=== PATIENT | female | born 1940 | race Caucasian/White ===

== ENCOUNTER 2020-05-02 11:40 | Emergency (ER) | payer MEDICARE, OTHER ==
--- NOTE | 2020-05-02 12:30 | CT ---
INDICATION: Left sided weakness. No headache or dizziness. CT HEAD WITHOUT CONTRAST: Spiral 3.75 mm axial sections were obtained through the brain without contrast with axial, sagittal and coronal reconstructions, 05/02/2020 and compared with 06/27/2010. Total exam DLP was 1219.22 mGy-cm. There is a again noted a small retention cyst at the base of the right maxillary antrum with the paranasal and mastoid air cells otherwise well aerated. The orbits appear to be intact. Calcifications are noted in the vertebral and internal carotid arteries. Focal low density abnormality is now seen in the thalami bilaterally, larger on the left than on the right, suggesting lacunar infarcts. Basal ganglia areas of decreased density are noted, also compatible with lunar infarcts, more prominently on the left than on the right-relatively tiny changes are seen on the right. White matter changes have progressed significantly compared with the previous examination, compatible with at least a moderate degree of microvascular disease type changes in the white matter with the bulk of the abnormality in the white matter in the parietal lobes and fairly randomly placed in those lobes. No definite acute intracranial abnormality was identified-no definite bleeding site or definite acute thrombotic CVA is seen. However, the possibility that some of these areas of decreased density in the white matter are on an acute basis or evolving is difficult to exclude especially in the left parietal area, although multiple sites of change in appearance are present. IMPRESSION: 1. Cerebral vascular disease with arterial calcifications and progressive moderate microvascular disease type changes in the white matter, some of which could represent acute or evolving incidence of ischemia. No bleeding site or hematoma was seen. 2. Mild central atrophy which is progressive compared with the previous study. 3. Minimal progressive cortical atrophy compared with the previous study. Report was called to Dr. Mena at 1212 hours 05/02/2020. [facility]
--- NOTE | 2020-05-02 12:45 | EDM.PDOC ---
ED HPI GENERAL MEDICAL PROBLEM - General Stated Complaint: WEAKNESS Time Seen by Provider: 05/02/20 11:45 Source of Information: Reports: Patient History Limitations: Reports: No Limitations - History of Present Illness INITIAL COMMENTS - FREE TEXT/NARRATIVE: Patient is an 79 YO female who presented to the ED because of left sided weakness which started 3 days ago. She also had slurred speech according to the daughter and blurry vision. She fell Thursday and Thursday because her left leg is weak and gave out. There is no headache,dizziness, nausea,vomiting. Most of her symptoms has already resolved since Thursday except the blurry vision. 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 ED ROS GENERAL - Review of Systems Review Of Systems: See Below Constitutional: Reports: No Symptoms HEENT: Reports: No Symptoms Respiratory: Reports: No Symptoms Cardiovascular: Reports: No Symptoms Endocrine: Reports: No Symptoms GI/Abdominal: Reports: No Symptoms : Reports: No Symptoms Musculoskeletal: Reports: No Symptoms Skin: Reports: No Symptoms Neurological: Reports: Weakness Psychiatric: Reports: No Symptoms Hematologic/Lymphatic: Reports: No Symptoms ED EXAM, NEURO - Physical Exam Exam: See Below Exam Limited By: No Limitations General Appearance: Alert, No Apparent Distress Eye Exam: Bilateral Eye: PERRL Ears: Normal External Exam, Normal Canal, Hearing Grossly Normal Nose: Normal Inspection, Normal Mucosa, No Blood Throat/Mouth: Normal Inspection, Normal Lips, Normal Teeth, Normal Gums Head Exam: Atraumatic, Other Neck: Normal Inspection, Supple, Non-Tender, Full Range of Motion Respiratory/Chest: No Respiratory Distress, Lungs Clear, Normal Breath Sounds, No Accessory Muscle Use, Chest Non-Tender Cardiovascular: Normal Peripheral Pulses, Regular Rate, Rhythm, No Edema, No Gallop, No JVD, No Murmur GI/Abdominal: Normal Bowel Sounds, Soft, Non-Tender, No Organomegaly Neurological: Alert, Normal Dorsiflexion, CN II-XII Intact, Normal Plantar Flexion, Normal Gait, Normal Reflexes, No Motor/Sensory Deficits, Oriented x 3 Back Exam: Normal Inspection, Full Range of Motion Extremities: Normal Inspection, Normal Range of Motion Psychiatric: Normal Affect, Normal Mood Skin Exam: Warm, Intact, Normal Color, No Rash Course - Vital Signs Text/Narrative:: Labs/EKG/Head CT was reviewed and discussed with patient ASA 324 mg PO x1 - Orders/Labs/Meds Orders: Active Orders 24 hr Category Date Time Status EKG Documentation Completion [RC] ASDIRECTED Care 05/02/20 11:53 Active Chest 1V Frontal [CR] Stat Exams 05/02/20 11:52 Taken COMPREHENSIVE METABOLIC PN,CMP [CHEM] Stat Lab 05/02/20 12:15 Received INR,PT,PROTHROMBIN TIME [COAG] Stat Lab 05/02/20 12:15 Received PTT,PARTIAL THROMBOPLSTIN TIME [COAG] Stat Lab 05/02/20 12:15 Received TROPONIN I [CHEM] Stat Lab 05/02/20 12:15 Received Sodium Chloride 0.9% [Saline Flush] Med 05/02/20 11:52 Active 10 ml FLUSH ASDIRECTED PRN Saline Lock Insert [OM.PC] Routine Oth 05/02/20 11:52 Ordered EKG 12 Lead [EK] Routine Ther 05/02/20 11:52 Ordered Medication Orders Sodium Chloride (Sodium Chloride 0.9% 10 Ml Syringe) 10 ml FLUSH ASDIRECTED PRN PRN Reason: Keep Vein Open Labs: Laboratory Tests 05/02/20 Range/Units 12:15 WBC 7.1 (3.0-10.3) x10-3/uL RBC 3.82 (3.60-5.20) x10(6)uL Hgb 11.4 (11.4-15.5) g/dL Hct 34.7 (34.2-48.2) % MCV 90.8 (76.7-100.5) fL MCH 29.8 (23.9-33.9) pg MCHC 32.8 (31.9-34.8) g/dL RDW 13.5 (12.3-16.5) % Plt Count 174 (151-488) x10(3)uL MPV 10.0 (7.1-12.4) fL Neut % (Auto) 78.3 H (30.8-76.2) % Lymph % (Auto) 17.6 L (18.4-52.1) % [place] % (Auto) 3.2 L (4.4-15.7) % Eos % (Auto) 0.3 L (0.6-8.1) % Baso % (Auto) 0.6 (0.2-1.5) % Neut # (Auto) 5.5 (1.5-6.3) x10-3/uL Lymph # (Auto) 1.3 (1.0-4.4) x10-3/uL [place] # (Auto) 0.2 L (0.3-1.0) x10-3/uL Eos # (Auto) 0.0 (0.0-0.8) x10-3/uL Baso # (Auto) 0.0 (0.0-0.1) x10-3/uL Meds: Medications Generic Name Dose Route Start Last Admin Trade Name Freq PRN Reason Stop Dose Admin Sodium Chloride 10 ml 05/02/20 11:52 Sodium Chloride 0.9% 10 Ml Syringe FLUSH ASDIRECTED PRN Keep Vein Open Departure - Departure Time of Disposition: 13:00 Disposition: DC/Tfer to Acute Hospital 02 Condition: Good Clinical Impression: CVA (cerebral vascular accident), Hypertension - Discharge Information - My Orders Last 24 Hours: My Active Orders 05/02/20 11:52 Chest 1V Frontal [CR] Stat Sodium Chloride 0.9% [Saline Flush] 10 ml FLUSH ASDIRECTED PRN Saline Lock Insert [OM.PC] Routine EKG 12 Lead [EK] Routine 05/02/20 11:53 EKG Documentation Completion [RC] ASDIRECTED 05/02/20 12:15 COMPREHENSIVE METABOLIC PN,CMP [CHEM] Stat INR,PT,PROTHROMBIN TIME [COAG] Stat PTT,PARTIAL THROMBOPLSTIN TIME [COAG] Stat TROPONIN I [CHEM] Stat - Assessment/Plan Last 24 Hours: My Active Orders 05/02/20 11:52 Chest 1V Frontal [CR] Stat Sodium Chloride 0.9% [Saline Flush] 10 ml FLUSH ASDIRECTED PRN Saline Lock Insert [OM.PC] Routine EKG 12 Lead [EK] Routine 05/02/20 11:53 EKG Documentation Completion [RC] ASDIRECTED 05/02/20 12:15 COMPREHENSIVE METABOLIC PN,CMP [CHEM] Stat INR,PT,PROTHROMBIN TIME [COAG] Stat PTT,PARTIAL THROMBOPLSTIN TIME [COAG] Stat TROPONIN I [CHEM] Stat
[2020-05-02] MEDS: Aspirin 81 MG Tab.Chew PO STA (13:02)
[2020-05-02] MEDS: hydrALAZINE 20 MG/ML SDV IVPUSH STA (13:07)
[2020-05-02] MEDS: Sodium Chloride 0.9% 10 ML Syringe FLUSH PRN (13:07)
--- NOTE | 2020-05-02 15:57 | CR ---
INDICATION: CVA. CHEST ONE VIEW: An AP portable upright view of the chest was obtained 05/02/20 and compared with 05/28/11. The heart did not appear increased in size compared with the previous study and may be near the upper limits of normal in size. The aorta is calcified in the arch area. A definite active infiltrate or effusion was not identified. Evidence of exogenous obesity is noted. IMPRESSION: No acute process. MTDD
== END 2020-05-02 13:38 ==
LOC: FB.ED 11:40
DX: I63.9 Cerebral infarction, unspecified (principal); I10 Essential (primary) hypertension
CPT/HCPCS: 70450; 71045; 80053; 84484; 85025; 85610; 85730; 93005; 96374; 99285; A9270; J0360

== ENCOUNTER 2021-11-06 19:28 | Emergency (ER) | payer MEDICARE, OTHER ==
[2021-11-06] MEDS: Sodium Chloride 0.9% 1,000 ML IV SCH (20:04)
[2021-11-06] MEDS: Ondansetron 4 MG/2 ML SDV IVPUSH ONE (20:04)
[2021-11-06 20:27] LABS: ESTIMATED GFR 13 mL/min (>60)
[2021-11-06] MEDS: hydrALAZINE 20 MG/ML SDV IVPUSH ONE (21:15)
[2021-11-06] MEDS: Acetaminophen 325 MG Tab PO ONE (21:50)
[2021-11-06] MEDS: Acetaminophen 325 MG Tab ONE (21:50)
== END 2021-11-06 22:05 | disposition home or self-care (01) ==
LOC: FB.ED 19:28
DX: I12.9 Hypertensive chronic kidney disease with stage 1 through stage 4 chronic kidney disease, or unspecified chronic kidney disease (principal); N18.30 Chronic kidney disease, stage 3 unspecified; E11.40 Type 2 diabetes mellitus with diabetic neuropathy, unspecified
CPT/HCPCS: 36415; 80048; 82550; 85025; 96361; 96374; 96375; 99283; 99284-25; A9270-GY; J0360; J2405; J7030

== ENCOUNTER 2021-12-28 16:03 | Emergency (ER) | payer MEDICARE, OTHER ==
[2021-12-28 17:09] LABS: ESTIMATED GFR 10 mL/min (>60)
[2021-12-28] MEDS ORDERED: Potassium Chloride 20 MEQ Tab.ER PO ONE (17:25)
[2021-12-28] MEDS: NS + KCl 20mEq/L 1,000 ML IV SCH ×2 (17:31→19:00)
[2021-12-28 17:39] LABS: CORONAVIRUS COVID-19 NAA NEGATIVE (NEGATIVE)
[2021-12-28] MEDS ORDERED: cloNIDine 0.1 MG Tab PO ONE (20:56)
== END 2021-12-28 21:25 | disposition home or self-care (01) ==
LOC: FB.ED 16:03
DX: E86.0 Dehydration (principal); E87.6 Hypokalemia; E83.52 Hypercalcemia; E78.00 Pure hypercholesterolemia, unspecified; I12.9 Hypertensive chronic kidney disease with stage 1 through stage 4 chronic kidney disease, or unspecified chronic kidney disease; E11.42 Type 2 diabetes mellitus with diabetic polyneuropathy; E11.22 Type 2 diabetes mellitus with diabetic chronic kidney disease; N18.30 Chronic kidney disease, stage 3 unspecified; E03.9 Hypothyroidism, unspecified; M10.9 Gout, unspecified; Z20.822 Contact with and (suspected) exposure to COVID-19
CPT/HCPCS: 0241U; 36415; 80048; 81001; 83735; 84443; 84484; 85027; 96365; 99284-25; A9270-GY; J3480

== ENCOUNTER 2022-01-02 09:16 | Inpatient (IN) | payer MEDICARE, OTHER ==
[2022-01-02] MEDS ORDERED: Sodium Chloride 0.9% 1,000 ML IV ONE (09:45)
[2022-01-02] MEDS ORDERED: Ondansetron 4 MG/2 ML SDV IVPUSH ONE (09:45)
[2022-01-02 10:24] LABS: ESTIMATED GFR 12 mL/min (>60)
[2022-01-02] MEDS ORDERED: Acetaminophen 325 MG Tab PO PRN (14:45)
[2022-01-02] MEDS: hydrALAZINE 50 MG Tab PO SCH ×2 (16:10→21:22)
[2022-01-02] MEDS: Sodium Chloride 0.9% 1,000 ML IV SCH (16:14)
[2022-01-02] MEDS: Heparin Sodium 5,000 Units/ML Vial SUBCUT SCH (18:05)
[2022-01-02] MEDS: Sodium Bicarbonate 650 MG Tab PO SCH (21:22)
[2022-01-02] MEDS: cloNIDine 0.1 MG Tab PO SCH (21:22)
[2022-01-02] MEDS: NIFEdipine 60 MG Tab.ER PO SCH (21:41)
[2022-01-03] MEDS: Sodium Chloride 0.9% 1,000 ML IV SCH (03:52)
[2022-01-03] MEDS: Heparin Sodium 5,000 Units/ML Vial SUBCUT SCH (05:55)
[2022-01-03] MEDS ORDERED: Levothyroxine 125 MCG Tab PO SCH (06:00)
[2022-01-03 07:30] LABS: ESTIMATED GFR 12 mL/min (>60)
[2022-01-03] MEDS ORDERED: Aspirin 325 MG Tab.EC PO SCH (09:00)
[2022-01-03] MEDS ORDERED: Ascorbic Acid 500 MG Tab PO SCH (09:00)
[2022-01-03] MEDS ORDERED: Ferrous Sulfate 325 MG Tab PO SCH (09:00)
[2022-01-03] MEDS: Ondansetron 4 MG/2 ML SDV IVPUSH PRN (09:05)
[2022-01-03] MEDS ORDERED: Furosemide 40 MG/4 ML VIAL IVPUSH SCH (09:15)
[2022-01-03] MEDS: NIFEdipine 60 MG Tab.ER PO SCH ×2 (10:22→21:32)
[2022-01-03] MEDS: cloNIDine 0.1 MG Tab PO SCH ×2 (10:22→21:32)
[2022-01-03] MEDS: Metoprolol Succinate 50 MG Tab.ER PO SCH (10:24)
[2022-01-03] MEDS: hydrALAZINE 50 MG Tab PO SCH ×3 (10:32→21:32)
[2022-01-03] MEDS: Sodium Bicarbonate 650 MG Tab PO SCH (10:33)
[2022-01-03] MEDS: Docusate Sodium 100 MG Cap PO SCH (12:35)
[2022-01-03] MEDS ORDERED: LORazepam 0.5 MG Tab PO PRN (17:02)
[2022-01-03] MEDS ORDERED: Hyoscyamine 0.125 MG Tab.SL SL PRN (17:05)
[2022-01-03] MEDS ORDERED: Morphine 10 MG/0.5 ML Oral Syringe PO PRN (17:06)
[2022-01-04 07:02] LABS: ESTIMATED GFR 11 mL/min (>60)
[2022-01-04] MEDS: hydrALAZINE 50 MG Tab PO SCH ×3 (10:04→20:37)
[2022-01-04] MEDS: cloNIDine 0.1 MG Tab PO SCH ×2 (10:04→20:38)
[2022-01-04] MEDS: NIFEdipine 60 MG Tab.ER PO SCH ×2 (10:04→20:38)
[2022-01-04] MEDS: Metoprolol Succinate 50 MG Tab.ER PO SCH (10:04)
[2022-01-04] MEDS: Ondansetron 4 MG/2 ML SDV IVPUSH PRN (10:05)
[2022-01-04] MEDS ORDERED: Bisacodyl 10 MG Supp RECTAL PRN (10:48)
[2022-01-04] MEDS: Docusate Sodium 100 MG Cap PO SCH ×2 (15:01→15:02)
[2022-01-05] MEDS: hydrALAZINE 50 MG Tab PO SCH ×3 (07:59→20:55)
[2022-01-05] MEDS: cloNIDine 0.1 MG Tab PO SCH ×2 (07:59→20:55)
[2022-01-05] MEDS: Metoprolol Succinate 50 MG Tab.ER PO SCH (08:00)
[2022-01-05] MEDS: NIFEdipine 60 MG Tab.ER PO SCH ×2 (08:00→20:54)
[2022-01-05] MEDS: Docusate Sodium 100 MG Cap PO SCH (11:07)
[2022-01-06] MEDS: hydrALAZINE 50 MG Tab PO SCH ×3 (08:01→21:10)
[2022-01-06] MEDS: NIFEdipine 60 MG Tab.ER PO SCH ×2 (08:05→21:11)
[2022-01-06] MEDS: cloNIDine 0.1 MG Tab PO SCH ×2 (08:06→21:06)
[2022-01-06] MEDS: Metoprolol Succinate 50 MG Tab.ER PO SCH (08:06)
[2022-01-06] MEDS: Docusate Sodium 100 MG Cap PO SCH (11:17)
[2022-01-06] MEDS: Hyoscyamine 0.125 MG Tab.SL PO SCH ×4 (11:17→21:10)
[2022-01-07] MEDS: Hyoscyamine 0.125 MG Tab.SL PO SCH ×3 (01:15→10:22)
[2022-01-07] MEDS: hydrALAZINE 50 MG Tab PO SCH (10:22)
[2022-01-07] MEDS: cloNIDine 0.1 MG Tab PO SCH (10:23)
[2022-01-07] MEDS: Metoprolol Succinate 50 MG Tab.ER PO SCH (10:23)
== END 2022-01-07 10:30 | disposition swing bed (61) | DRG 641 ==
LOC: FB.ED 09:16 → FB.MS 14:03
PROVIDERS: ADMIT Family Medicine; ATTEND Family Medicine
DX: E83.52 Hypercalcemia (principal); R11.2 Nausea with vomiting, unspecified; N17.9 Acute kidney failure, unspecified; R10.84 Generalized abdominal pain; N18.5 Chronic kidney disease, stage 5; Z51.5 Encounter for palliative care; Z88.8 Allergy status to other drugs, medicaments and biological substances; Z66 Do not resuscitate; I12.9 Hypertensive chronic kidney disease with stage 1 through stage 4 chronic kidney disease, or unspecified chronic kidney disease; M10.9 Gout, unspecified; M19.90 Unspecified osteoarthritis, unspecified site; N18.30 Chronic kidney disease, stage 3 unspecified; M81.0 Age-related osteoporosis without current pathological fracture; E11.42 Type 2 diabetes mellitus with diabetic polyneuropathy; E03.9 Hypothyroidism, unspecified; E78.00 Pure hypercholesterolemia, unspecified; H54.7 Unspecified visual loss; E11.22 Type 2 diabetes mellitus with diabetic chronic kidney disease; Z88.5 Allergy status to narcotic agent; Z88.2 Allergy status to sulfonamides; Z79.82 Long term (current) use of aspirin; Z79.890 Hormone replacement therapy; Z79.899 Other long term (current) drug therapy; Z87.891 Personal history of nicotine dependence; Z90.49 Acquired absence of other specified parts of digestive tract; Z86.73 Personal history of transient ischemic attack (TIA), and cerebral infarction without residual deficits
CPT/HCPCS: 36415; 51702; 71045; 74176; 80053; 80069; 81001; 82947; 83605; 83735; 84484; 85025; 93005; 96361; 96374; 99285-25; A9270-GY; J1644; J1940; J2405; J7030

== ENCOUNTER 2022-01-07 10:30 | Inpatient (IN) | payer MEDICARE, OTHER ==
[2022-01-07] MEDS ORDERED: Ondansetron 4 MG Tab.DIS PO PRN (11:46)
[2022-01-07] MEDS ORDERED: Acetaminophen 325 MG Tab PO PRN (11:46)
[2022-01-07] MEDS ORDERED: Morphine 10 MG/0.5 ML Oral Syringe PO PRN (11:46)
[2022-01-07] MEDS ORDERED: Bisacodyl 10 MG Supp RECTAL PRN (11:46)
[2022-01-07] MEDS ORDERED: LORazepam 0.5 MG Tab PO PRN (11:46)
[2022-01-07] MEDS: Docusate Sodium 100 MG Cap PO SCH (12:54)
[2022-01-07] MEDS: Hyoscyamine 0.125 MG Tab.SL PO SCH ×3 (13:34→20:59)
[2022-01-07] MEDS: hydrALAZINE 50 MG Tab PO SCH ×2 (13:34→20:56)
[2022-01-07] MEDS: cloNIDine 0.1 MG Tab PO SCH (20:58)
[2022-01-08] MEDS: Hyoscyamine 0.125 MG Tab.SL PO SCH ×6 (00:59→20:59)
[2022-01-08] MEDS: hydrALAZINE 50 MG Tab PO SCH ×3 (08:16→20:51)
[2022-01-08] MEDS: cloNIDine 0.1 MG Tab PO SCH ×2 (08:19→20:50)
[2022-01-08] MEDS: Metoprolol Succinate 50 MG Tab.ER PO SCH (08:19)
[2022-01-08] MEDS: Docusate Sodium 100 MG Cap PO SCH (13:07)
[2022-01-09] MEDS: Hyoscyamine 0.125 MG Tab.SL PO SCH ×6 (01:20→22:40)
[2022-01-09] MEDS: hydrALAZINE 50 MG Tab PO SCH ×3 (08:40→20:00)
[2022-01-09] MEDS: cloNIDine 0.1 MG Tab PO SCH ×2 (08:40→19:59)
[2022-01-09] MEDS: Metoprolol Succinate 50 MG Tab.ER PO SCH (08:41)
[2022-01-09] MEDS: Docusate Sodium 100 MG Cap PO SCH (11:47)
[2022-01-10] MEDS: Hyoscyamine 0.125 MG Tab.SL PO SCH ×6 (02:00→21:22)
[2022-01-10] MEDS: hydrALAZINE 50 MG Tab PO SCH ×3 (08:26→20:25)
[2022-01-10] MEDS: Metoprolol Succinate 50 MG Tab.ER PO SCH (08:27)
[2022-01-10] MEDS: cloNIDine 0.1 MG Tab PO SCH ×2 (08:28→20:25)
[2022-01-10] MEDS: Docusate Sodium 100 MG Cap PO SCH (13:00)
[2022-01-11] MEDS: Hyoscyamine 0.125 MG Tab.SL PO SCH ×6 (01:30→20:59)
[2022-01-11] MEDS: hydrALAZINE 50 MG Tab PO SCH ×3 (08:14→20:58)
[2022-01-11] MEDS: cloNIDine 0.1 MG Tab PO SCH ×2 (08:15→20:59)
[2022-01-11] MEDS: Metoprolol Succinate 50 MG Tab.ER PO SCH (10:57)
[2022-01-11] MEDS: Docusate Sodium 100 MG Cap PO SCH (11:17)
[2022-01-11] MEDS: amLODIPine 5 MG Tab PO SCH (18:05)
[2022-01-12] MEDS: Hyoscyamine 0.125 MG Tab.SL PO SCH ×6 (01:49→21:12)
[2022-01-12] MEDS: cloNIDine 0.1 MG Tab PO SCH ×2 (08:08→20:29)
[2022-01-12] MEDS: hydrALAZINE 50 MG Tab PO SCH ×3 (08:08→20:30)
[2022-01-12] MEDS: amLODIPine 5 MG Tab PO SCH (08:12)
[2022-01-12] MEDS: Docusate Sodium 100 MG Cap PO SCH (12:04)
[2022-01-13] MEDS: Hyoscyamine 0.125 MG Tab.SL PO SCH ×6 (01:10→22:18)
[2022-01-13] MEDS: hydrALAZINE 50 MG Tab PO SCH ×3 (08:52→19:59)
[2022-01-13] MEDS: cloNIDine 0.1 MG Tab PO SCH ×2 (08:52→19:59)
[2022-01-13] MEDS: amLODIPine 5 MG Tab PO SCH (09:19)
[2022-01-13] MEDS: Docusate Sodium 100 MG Cap PO SCH (12:13)
[2022-01-14] MEDS: Hyoscyamine 0.125 MG Tab.SL PO SCH ×3 (02:30→09:59)
[2022-01-14] MEDS: hydrALAZINE 50 MG Tab PO SCH (08:40)
[2022-01-14] MEDS: amLODIPine 5 MG Tab PO SCH (08:41)
[2022-01-14] MEDS: cloNIDine 0.1 MG Tab PO SCH (08:41)
== END 2022-01-14 10:20 | disposition hospice, inpatient (51) | DRG 951 ==
LOC: UNDOADMIN 10:30 → FB.MS 10:30
PROVIDERS: ADMIT Family Medicine; ATTEND Family Medicine
DX: Z51.5 Encounter for palliative care (principal); U07.1 COVID-19; N18.6 End stage renal disease; N17.9 Acute kidney failure, unspecified; I12.0 Hypertensive chronic kidney disease with stage 5 chronic kidney disease or end stage renal disease; Z66 Do not resuscitate; E83.52 Hypercalcemia; H54.7 Unspecified visual loss; E78.00 Pure hypercholesterolemia, unspecified; M10.9 Gout, unspecified; M19.90 Unspecified osteoarthritis, unspecified site; M81.0 Age-related osteoporosis without current pathological fracture; E11.40 Type 2 diabetes mellitus with diabetic neuropathy, unspecified; E03.9 Hypothyroidism, unspecified; Z98.49 Cataract extraction status, unspecified eye; Z79.899 Other long term (current) drug therapy; Z88.5 Allergy status to narcotic agent; Z88.8 Allergy status to other drugs, medicaments and biological substances; Z88.2 Allergy status to sulfonamides; Z88.1 Allergy status to other antibiotic agents; Z98.890 Other specified postprocedural states; Z86.73 Personal history of transient ischemic attack (TIA), and cerebral infarction without residual deficits
CPT/HCPCS: A9270-GY; U0002